=== PATIENT | male | born 1985 | race Two or more races ===

== ENCOUNTER 2021-11-27 16:02 | Emergency (ER) | payer MEDICAID ==
[~2021-11-27] VITALS: Ht 177.8 cm; Wt 98.0 kg
[2021-11-27 16:06] VITALS: BP 119/65
[2021-11-27] MEDS ORDERED: PROP20TA6 PO (17:28)
== END 2021-11-27 17:47 | disposition home or self-care (01) ==
LOC: ER 16:03
DX: K74.60 Unspecified cirrhosis of liver (principal); K76.9 Liver disease, unspecified; F11.90 Opioid use, unspecified, uncomplicated; Z76.0 Encounter for issue of repeat prescription; Z72.89 Other problems related to lifestyle; Z56.0 Unemployment, unspecified; Z90.89 Acquired absence of other organs
CPT/HCPCS: 99281

== ENCOUNTER 2024-08-17 11:47 | Emergency (ER) | payer MEDICAID ==
[~2024-08-17] VITALS: Ht 177.8 cm; Wt 78.0 kg
[~2024-08-17 11:47] MED LIST: PROP20TA6 PO
[2024-08-17 12:07] VITALS: BP 108/67
[2024-08-17] MEDS ORDERED: normal saline 1000ml 1,000 ML IV ONE (13:40)
[2024-08-17] MEDS: ipratropium/albuterol 3ml nebule NEB ONE (14:16)
[2024-08-17 14:17] VITALS: PULSE 73; PULSE 78; RESP 16; RESP 18; O2SAT 98
[2024-08-17 14:30] LABS: BASOPHILS % (AUTO) 0.3 % (0-1); EOSINOPHILS # (AUTO) 0.2 X10'3 (0-0.9); HEMATOCRIT 41.6 % (42.0-52.0); HEMOGLOBIN 14.3 g/dl (14.0-17.9); LYMPHOCYTES # (AUTO) 0.4 X10'3 (1.1-4.8); LYMPHOCYTES % (AUTO) 4.8 % (21-51); MEAN CORPUSCULAR HEMOGLOBIN 31.4 PG (27.0-31.0); MEAN CORPUSCULAR HGB CONC 34.4 g/dL (33.0-36.5); MEAN CORPUSCULAR VOLUME 91.5 FL (78-98); MEAN PLATELET VOLUME 9.4 FL (7.4-10.4); MONOCYTES # (AUTO) 0.7 X10'3 (0-0.9); NEUTROPHILS # (AUTO) 6.4 X10'3 (1.8-7.7); NEUTROPHILS % (AUTO) 83.9 % (42-75); PLATELET COUNT 69 X10'3 (140-440); RED BLOOD COUNT 4.54 X10'6 (4.70-6.10); WHITE BLOOD COUNT 7.7 X10'3 (4.5-11.0)
[2024-08-17 14:34] LABS: GLUCOSE 88 MG/DL (70-104); POTASSIUM 4.9 MMOL/L (3.5-5.1); SODIUM 135 MMOL/L (135-145)
[2024-08-17 14:35] LABS: ALBUMIN 3.6 G/DL (3.4-5.0); ANION GAP 3 (8-16); BLOOD UREA NITROGEN 14 MG/DL (7-18); BUN/CREATININE RATIO 13.5 (10.0-20.0); CALCIUM 8.8 MG/DL (8.5-10.1); CHLORIDE 99 MMOL/L (99-107); CREATININE 1.04 MG/DL (0.60-1.10); TOTAL CARBON DIOXIDE 32.9 MMOL/L (24-32); eCRCL 100 ML/MIN; eGFR 80 ML/MIN
[2024-08-17] MEDS ORDERED: ALBU8HFA PO (15:07)
[2024-08-17] MEDS: dexamethasone 4mg tablet PO ONE (15:08)
[2024-08-17 15:34] LABS: PLATELET ESTIMATE DECREASED; TOTAL CELLS COUNTED 100
[2024-08-17 15:48] VITALS: TEMP 98.7
== END 2024-08-17 15:52 | disposition home or self-care (01) ==
LOC: ER 11:47
DX: J06.9 Acute upper respiratory infection, unspecified (principal); Z20.822 Contact with and (suspected) exposure to COVID-19
CPT/HCPCS: 36415; 71045; 80048; 85007; 85025; 87502; 87503; 87811; 94640; 99284; J7030; 94760

== ENCOUNTER 2024-12-19 16:36 | Emergency (ER) | payer MEDICAID ==
[~2024-12-19] VITALS: Ht 177.8 cm; Wt 86.4 kg
[2024-12-19 16:38] VITALS: TEMP 98.2
[2024-12-19] MEDS ORDERED: iohexol 300mg/ml 100ml inj. ONE (16:49)
[2024-12-19 17:17] LABS: INR 1.1 INR; PROTHROMBIN TIME 11.6 SECONDS (9.0-12.0)
[2024-12-19 17:19] LABS: ALANINE AMINOTRANSFERASE 34 U/L (12-78); ALBUMIN 3.4 G/DL (3.4-5.0); ALBUMIN/GLOBULIN RATIO 1.1 (1.1-1.5); ALKALINE PHOSPHATASE 84 IU/L (46-116); ANION GAP 7 (8-16); ASPARTATE AMINO TRANSFERASE 24 U/L (10-37); BILIRUBIN,TOTAL 0.3 MG/DL (0.1-1.0); BLOOD UREA NITROGEN 14 MG/DL (7-18); BUN/CREATININE RATIO 17.3 (10.0-20.0); CALCIUM 8.2 MG/DL (8.5-10.1); CHLORIDE 106 MMOL/L (99-107); CREATININE 0.81 MG/DL (0.60-1.10); GLUCOSE 122 MG/DL (70-104); POTASSIUM 3.6 MMOL/L (3.5-5.1); SODIUM 140 MMOL/L (135-145); TOTAL CARBON DIOXIDE 27.4 MMOL/L (24-32); TOTAL PROTEIN 6.4 G/DL (6.4-8.2); eCRCL 128 ML/MIN; eGFR > 90 ML/MIN
[2024-12-19 17:30] LABS: BASOPHILS % (AUTO) 0.5 % (0-1); EOSINOPHILS # (AUTO) 0.1 X10'3 (0-0.9); EOSINOPHILS % (AUTO) 3.9 % (0-6); HEMATOCRIT 32.5 % (42.0-52.0); HEMOGLOBIN 11.3 g/dl (14.0-17.9); LYMPHOCYTES # (AUTO) 0.5 X10'3 (1.1-4.8); LYMPHOCYTES % (AUTO) 17.7 % (21-51); MEAN CORPUSCULAR HEMOGLOBIN 30.3 PG (27.0-31.0); MEAN CORPUSCULAR HGB CONC 34.8 g/dL (33.0-36.5); MEAN CORPUSCULAR VOLUME 87.1 FL (78-98); MEAN PLATELET VOLUME 8.7 FL (7.4-10.4); MONOCYTES # (AUTO) 0.3 X10'3 (0-0.9); MONOCYTES % (AUTO) 8.9 % (2-12); PLATELET COUNT 55 X10'3 (140-440); RED BLOOD COUNT 3.72 X10'6 (4.70-6.10); RED CELL DISTRIBUTION WIDTH 15.2 % (11.5-14.5); WHITE BLOOD COUNT 2.9 X10'3 (4.5-11.0)
[2024-12-19 18:18] VITALS: BP 118/66; PULSE 70; RESP 15; O2SAT 97
[2024-12-19 19:01] LABS: TOTAL CELLS COUNTED 100
== END 2024-12-19 18:21 | disposition home or self-care (01) ==
LOC: ER 16:37
DX: S20.211A Contusion of right front wall of thorax, initial encounter (principal); S30.1XXA Contusion of abdominal wall, initial encounter; Z90.89 Acquired absence of other organs; V89.2XXA Person injured in unspecified motor-vehicle accident, traffic, initial encounter; Y93.89 Activity, other specified; Y92.410 Unspecified street and highway as the place of occurrence of the external cause; Y99.8 Other external cause status
CPT/HCPCS: 36415; 71260; 74177; 80053; 85007; 85025; 85610; 99285; Q9967

== ENCOUNTER 2025-02-21 18:53 | Emergency (ER) | payer MEDICAID ==
[~2025-02-21] VITALS: Ht 177.8 cm; Wt 86.1 kg
[2025-02-21 19:07] VITALS: BP 121/72; PULSE 92; RESP 15; O2SAT 100
--- NOTE | 2025-02-21 19:34 | Physician Documentation ---
History of Present Illness ~ Chief Complaint: Abscess Stated Complaint: INFECTION IN NOSE Time Seen by MD: 19:28 HPI Patient is seen today with complaints of pain and tenderness of his nose and feels he has an abscess in his nose. Patient does admit to fentanyl use regularly dizzy acid last use being 5 hours ago. Patient denies any fevers or chills or chest pain or shortness of breath or abdominal pain or nausea, vomiting, diarrhea. Patient has no other concern or complaint at this time. Patient denies any sinus pressure or tenderness or discharge and denies any cough or recent illness. Tetanus Within 5 Years: No Medication Reconciliation Allergies: Coded Allergies: No Known Allergies (Unverified , 02/21/25) Scheduled Propranolol Hcl (Propranolol Hcl), 1 TAB PO Q12H Past Medical History Past Medical History: Cirrohsis, Liver Disease Past Surgical History: tonsillectomy Alcohol Use: Occasionally Drug Use: heroin Lives In: Home Occupation: unemployed Review of Systems Constitutional: Denies: chills, fever, weakness Eyes: Denies: pain, blurred vision ENT: Denies: ear pain, nose pain, throat pain, mouth pain Respiratory: Denies: cough, shortness of breath Cardiovascular: Denies: chest pain, palpitations Gastrointestinal: Denies: abdominal pain, nausea, vomiting Genitourinary: Denies: burning, dysuria Male Genitalia: Denies: penile discharge, testicular pain Neurological: Denies: headache, dizziness Musculoskeletal: Denies: pain, swelling Integumentary: Denies: rash, lesions Allergic/Immunologic: Denies: hives, itching Hematologic/Lymphatic: Denies: no symptoms reported Psychiatric: Denies: depression, anxiety Physical Exam Vital Signs: Temperature: 97.6, Source: Temporal, Heart Rate: 92, Respiratory Rate: 15, BP: 121/72, Pulse Oximetry: 100, Weight: 86.100 Physical Exam General: Awake and Alert, no acute distress. HEENT: Patient on exam has significant tenderness to palpation of his left Gore anteriorly. I do not appreciate any purulent drainage but his anterior nose is little swollen. Conjunctiva pink, Sclera clear, Mucus Membranes moist. Neck: Supple without masses and tenderness. Resp: Unlabored. Lungs clear to auscultation bilaterally. Heart: Regular Rate and rhythm, normal S1 and S2 without murmur, rub or gallop. Extremities: No cyanosis,clubbing or edema. Skin: Warm and Dry. Progress Results/Orders Results/Orders Vital Signs 02/21/25 19:07 Temp 97.6 Pulse 92 Resp 15 B/P (MAP) 121/72 Pulse Ox 100 Medical Decision Making Findings Patient is seen today with complaints of pain and tenderness of his nose and feels he has an abscess in his nose. Patient does admit to fentanyl use regularly dizzy acid last use being 5 hours ago. Patient denies any fevers or chills or chest pain or shortness of breath or abdominal pain or nausea, vomiting, diarrhea. Patient has no other concern or complaint at this time. Patient denies any sinus pressure or tenderness or discharge and denies any cough or recent illness. Patient was given dose of Bactrim DS one tab by mouth in the ED tonight. Prescription of Bactrim DS sent to patient's pharmacy to be taken by mouth twice a day for 10 days. Prescription and doses of ibuprofen also given to patient. Patient will follow up with primary care in 2-5 days if no better as needed sooner. Return to ED with any worsening, concerning or changing symptoms. Departure Disposition: 01 HOME / SELF CARE / HOMELESS Impression: Primary Impression: Abscess Condition: Improved Discharge Instructions: Abscess, Care After Additional Instructions: Patient was given dose of Bactrim DS one tab by mouth in the ED tonight. Prescription of Bactrim DS sent to patient's pharmacy to be taken by mouth twice a day for 10 days. Prescription and doses of ibuprofen also given to patient. Patient will follow up with primary care in 2-5 days if no better as needed sooner. Return to ED with any worsening, concerning or changing symptoms. Referrals: NO PRIMARY CARE PROVIDER (PCP) Prescriptions Sulfamethoxazole/Trimethoprim (Bactrim Ds Tablet) 800 Mg-160 Mg Tablet 1 TAB PO Q12H for 10 Days, #20 TAB Prov: MAYTE MCKINNON PAC 02/21/25 Ibuprofen (Ibuprofen) 800 Mg Tablet 1 TAB PO Q8H for pain for 10 Days, #30 TAB 0 Refills Prov: MAYTE MCKINNON PAC 02/21/25 Additional Comment Medical Screen Exam History: This is a 39-year-old male who presents with a abscess in his nose, patient reports that he was successfully treated for this previously with Bactrim Exam: VITALS: Reviewed and as above. GENERAL: Alert, nontoxic appearing, no apparent distress. RESPIRATORY: No increased work of breathing, no respiratory distress, speaking in full clear sentences MSE performed in triage and patient returned to ED lobby by nursing staff The note accurately reflects work and decisions made by me.GAUTAM Neumann 02/21/25 19:34 Signature Scribe Signature: no scribe Attestation: No scribe NAYA PEÑA [facility] Feb 21, 2025 19:34 MAYTE MCKINNON [facility] Feb 21, 2025 20:04
[2025-02-21] MEDS ORDERED: IBUP-1986 PO (20:09)
[2025-02-21] MEDS ORDERED: SULF1TAB49 PO (20:09)
[2025-02-21] MEDS: sulfamethoxazole/trimethoprim DS (800/160mg) tablet PO STA (20:18)
[2025-02-21] MEDS: ibuprofen tablet 400 MG TABLET PO STA (20:18)
[2025-02-21 20:23] VITALS: TEMP 97.6
== END 2025-02-21 20:24 | disposition home or self-care (01) ==
LOC: ER 18:54
DX: J34.0 Abscess, furuncle and carbuncle of nose (principal); R42 Dizziness and giddiness; F11.90 Opioid use, unspecified, uncomplicated; Z79.899 Other long term (current) drug therapy; Z56.0 Unemployment, unspecified; Z72.89 Other problems related to lifestyle
CPT/HCPCS: 99283

== ENCOUNTER 2025-04-25 13:43 | Emergency (ER) | payer MEDICAID ==
[~2025-04-25] VITALS: Ht 177.8 cm; Wt 99.0 kg
[~2025-04-25 13:43] MED LIST changes: +IBUP-1986 PO
[2025-04-25 14:43] LABS: LEUKOCYTE ESTERASE ,URINE SMALL (Neg); NITRITES, URINE NEGATIVE (Neg); OCCULT BLOOD,URINE NEGATIVE (Neg)
[2025-04-25 14:45] LABS: UA COLLECTION TYPE CLN CATCH MIDSTREAM
[2025-04-25 14:47] LABS: MEAN PLATELET VOLUME 8.7 FL (7.4-10.4); RED CELL DISTRIBUTION WIDTH 15.7 % (11.5-14.5)
[2025-04-25 14:52] LABS: SQUAMOUS EPITHELIAL CELL,UR FEW /LPF (FEW)
[2025-04-25 14:53] LABS: WBC CLUMPS,URINE FEW /HPF (NEGATIVE)
[2025-04-25 15:08] LABS: TOTAL CARBON DIOXIDE 27.6 MMOL/L (24-32)
[2025-04-25 15:11] LABS: CREATININE 0.79 MG/DL (0.60-1.10); eCRCL 131 ML/MIN; eGFR > 90 ML/MIN
[2025-04-25 15:26] LABS: EOSINOPHILS % (MANUAL) 7.0 % (0-6); LYMPHOCYTES % (MANUAL) 21.0 % (21-51); MONOCYTES % (MANUAL) 12.0 % (2-12); NEUTROPHILS % (MANUAL) 60.0 % (42-75); PLATELET ESTIMATE DECREASED
--- NOTE | 2025-04-25 15:34 | Physician Documentation ---
History of Present Illness ~ Chief Complaint: Abdominal Pain Stated Complaint: LIVER COMPLICATIONS Time Seen by MD: 14:50 Source: patient Mode of Arrival: Ambulatory Exam Limitations: no limitations HPI Chief Complaint: Abdominal pain Caveat: None Independent Historians: None History of Present Illness: Patient is a 39-year-old man with a history of hepatitis-C and cirrhosis who complains of right upper quadrant abdominal pain that began earlier this morning. Pain came on gradually. Pain is described as sharp and tightness. Patient states that he was treated for his hepatitis-C. Patient denies any alcohol use. Patient's pain is severe. No alleviating or exacerbating factors. Patient had associated nausea and dry heaves. No diarrhea. Patient denies any fever. Patient denies any other associated symptoms. Review of systems: All systems were reviewed and are negative except for what is indicated in the history of present illness. Past Medical History: Hepatitis-C, esophageal varices, laryngeal tumor, cirrhosis Past Surgical History: None Social History: Tobacco use, denies alcohol use or drug use Medications: Reviewed as documented Nursing Notes Allergies: Reviewed as documented in Nursing Notes Medication Reconciliation Allergies: Coded Allergies: No Known Allergies (Unverified , 04/25/25) Scheduled Ibuprofen (Ibuprofen), 1 TAB PO Q8H Propranolol Hcl (Propranolol Hcl), 1 TAB PO Q12H Past Medical History Past Medical History: Cirrohsis, Liver Disease Past Surgical History: tonsillectomy Alcohol Use: Occasionally Drug Use: heroin Lives In: Home Occupation: unemployed Review of Systems All Other Systems at this time: Reviewed and Negative ROS Patient denies any other acute symptoms other than above. All other systems are negative Physical Exam Vital Signs: RN Vital Signs have been reviewed: Yes, Temperature: 97.2, Source: Temporal, Heart Rate: 70, Respiratory Rate: 17, BP: 119/66, Pulse Oximetry: 98, Weight: 99.050 Oxygen Flow Rate: 0 Pulse Oximetry Reflects: adequate oxygenation Physical Exam General Appearance: Mild distress HEENT: Normal OP, moist oral mucosa, PERRL, EOMI Neck: supple, normal ROM, trachea midline Pulmonary: No respiratory distress, CTA, BS equal Cardiac: RRR, no murmur, rub or gallop, GI: nondistended, soft, right upper quadrant tenderness, normal bowel sounds, no guarding, no rebound Extremities: normal ROM, no swelling, non-tender Skin: intact, dry, warm, no rashes, covered in tattoos Neuro: AAOx3, speech is clear, no focal motor weakness Psych: normal affect, good eye contact, no apparent hallucination, normal speech Progress Results/Orders Results/Orders Orders - CARTER LONGO MD Cult Urine + [address] (04/25/25 14:53) Ultrasound Of Abdomen (04/25/25 15:25) Ct Abdomen Pelvis (04/25/25 15:52) Completed Orders - CARTER LONGO MD Cbc/Diff (04/25/25 13:56) Lipase (04/25/25 13:56) CMP (04/25/25 13:56) Ua W/Microscopic, Cult If Ind (04/25/25 13:57) Man Diff (04/25/25 14:35) Ultrasound Of Abdomen (04/25/25 15:25) Ct Abdomen Pelvis (04/25/25 15:52) Tramadol Tablet (Ultram Tablet) (04/25/25 17:05) Medications Received in ER Medications (Trade) Dose Ordered Sig/Justyn Route PRN Reason Start Time Stop Time Status Last Admin Dose Admin (Ultram tablet) 100 mg ONCE ONCE PO 04/25/25 17:05 04/25/25 17:06 DC 04/25/25 17:25 100 MG Vital Signs 04/25/25 04/25/25 04/25/25 04/25/25 13:52 15:16 15:18 16:27 Temp 97.2 97.2 97.2 Pulse 74 70 72 Resp 19 17 17 16 B/P (MAP) 122/72 119/66 (83) 104/57 (73) Pulse Ox 98 98 98 O2 Flow Rate 0 0 04/25/25 04/25/25 17:25 17:27 Temp 97.2 Pulse 66 Resp 15 15 B/P (MAP) 90/52 (65) Pulse Ox 97 O2 Flow Rate 0 Laboratory Tests Test 04/25/25 13:57 04/25/25 14:35 Urine Specimen Description Cln catch midstream Urine Color Yellow Urine Clarity Clear Urine pH 6.5 Urine Specific [place] 1.015 Urine Protein Negative Urine Glucose (UA) Negative Urine Ketones Negative Urine Occult Blood Negative Urine Nitrite Negative Urine Bilirubin Negative Urine Urobilinogen 1.0 Urine Leukocyte Esterase Small H Urine RBC 3-10 Urine WBC 0-4 Urine WBC Clumps Few Urine Squamous Epithelial Cells Few Urine Transitional Epithelial Cells Few Urine Bacteria Few Urine Culture Indicated Indicated Volume Urine Centrifuged 10 ml Urine Comment White Blood Count 2.2 L Red Blood Count 4.07 L Hemoglobin 12.2 L Hematocrit 36.2 L Mean Corpuscular Volume 88.8 Mean Corpuscular Hemoglobin 30.0 Mean Corpuscular Hemoglobin Concent 33.8 Red Cell Distribution Width 15.7 H Platelet Count 52 L Mean Platelet Volume 8.7 Neutrophils (%) (Auto) 61.1 Lymphocytes (%) (Auto) 21.2 Monocytes (%) (Auto) 12.1 H Eosinophils (%) (Auto) 4.9 Basophils (%) (Auto) 0.7 Neutrophils # (Auto) 1.3 L Lymphocytes # (Auto) 0.5 L Monocytes # (Auto) 0.3 Eosinophils # (Auto) 0.1 Basophils # (Auto) 0.0 CBC Comment Differential Total Cells Counted 100 Neutrophils % (Manual) 60.0 Lymphocytes % (Manual) 21.0 Monocytes % (Manual) 12.0 Eosinophils % (Manual) 7.0 H Platelet Estimate Decreased Red Blood Cell Morphology Normal Basophilic Stippling Sodium Level 139 Potassium Level 4.1 Chloride Level 104 Carbon Dioxide Level 27.6 Anion Gap 7 L Blood Urea Nitrogen 15 Creatinine 0.79 Estimated GFR/1.73 m2 > 90 BUN/Creatinine Ratio 19.0 Glucose Level 88 Calcium Level 8.4 L Total Bilirubin 0.3 Aspartate Amino Transf (AST/SGOT) 26 Alanine Aminotransferase (ALT/SGPT) 30 Alkaline Phosphatase 96 Total Protein 7.2 Albumin 3.7 Globulin 3.5 Albumin/Globulin Ratio 1.1 Lipase 26 Chemistry Comments Microbiology Date/Time Source Procedure Growth Status 04/25/25 14:53 Urine Clean Catch Midstream Urine Culture - Preliminary Culture received. Resulted Medical Decision Making Findings Differential diagnosis includes but is not limited to: Cirrhosis, hepatitis-C exacerbation/recurrence, ascites, cholecystitis, choledocholithiasis, biliary colic, pancreatitis, gastritis Abdominal ultrasound, indication: Abdominal pain, hepatitis-C Impression: 1. No acute abdominopelvic abnormalities. 2. Gastrosplenic varices, similar to prior. 3. Mild biliary ductal dilatation, nonspecific. 4. Splenomegaly with multiple slightly prominent retroperitoneal, mesenteric, and inguinal nodes. Cannot exclude lymphomatous involvement. Correlate with signs and symptoms. Abdominal ultrasound of the gallbladder, indication: Right upper quadrant abdominal pain 1. Normal right upper quadrant ultrasound Laboratory data independent interpretation: CBC: Leukopenia 2.2, anemia 12.2, thrombocytopenia 52 CMP: Unremarkable, LFTs are normal Lipase: 26 Urinalysis: Emergency department course/medical decision-making: Patient is a 39-year-old man with known hepatitis-C and cirrhosis presents with a right upper quadrant abdominal pain. Patient's blood work is consistent with pancytopenia. However his LFTs are normal. Patient is afebrile and hemodynamically stable. Patient's lipase is normal ruling out acute pancreatitis. Patient does not wish to have opiates because he is currently on a methadone program. Case discussed with the Infectious Disease dark regarding the lymphadenopathy. He will require outpatient workup in additional blood work for assessment of this new finding on CT. Patient's pain is treated with Ultram. Test results treatment plan and all of the above was reviewed with the patient. He needs to follow up with [facility] for his pancytopenia and lymphadenopathy. Cause for his abdominal pain is unknown. But no medical or surgical emergency has been identified. Patient is stable for discharge. Departure Time of Disposition: 17:59 Disposition: 01 HOME / SELF CARE / HOMELESS Impression: Primary Impression: Abdominal pain of unknown cause Additional Impressions: Mesenteric lymphadenopathy Pancytopenia Additional Instructions: THE CAUSE FOR YOUR ABDOMINAL PAIN IS UNCLEAR. YOU WILL NEED TO FOLLOW UP WITH YOUR DOCTOR AT [facility] TO COMPLETE ADDITIONAL BLOOD WORK. YOU HAVE SOME LYMPH NODES IN THE ABDOMEN THAT NEED FOLLOWING AND PROBABLE FURTHER OUTPATIENT WORKUPS WITH BLOOD WORK. Prescriptions Tramadol Hcl (Tramadol Hcl) 50 Mg Tablet 100 MG PO TID PRN for pain, #20 TAB Prov: CARTER LONGO MD 04/25/25 Education Educated: Patient Educated regarding: diagnosis, treatment, need for follow up Signature Scribe Signature: No scribe Attestation: No scribe CARTER LONGO MD Apr 25, 2025 15:34
--- NOTE | 2025-04-25 16:09 | RADIOLOGY REPORT ---
Ultrasound abdomen right upper quadrant INDICATION: Abdominal Pain R/O Gallbladder Technique: 2-D real-time ultrasound was performed with axial and sagittal images submitted for evalu ation. FINDINGS: Liver is normal in size measuring 13.7 cm without mass. No gallstones or gallbladder wall thickening. Common duct normal in size 3.3 mm. Right kidney 10.4 cm in length without mass stone or hydronephrosis IMPRESSION: 1. Normal right upper quadrant ultrasound
--- NOTE | 2025-04-25 16:50 | RADIOLOGY REPORT ---
Exam: CT CT ABDOMEN PELVIS History: Abdominal Pain Comparison Study: None TECHNIQUE: A digital hse coordinator image was obtained. During the uneventful, intravenous administration of c ontrast material, multislice data acquisition was obtained through the abdomen and pelvis. The data s et was subsequently reconstructed into axial images. Images reviewed on a wrist examination is an exa mination of axial and multiplanar reformations using a variety of window levels and settings. RADIATION DOSE: DLP 2153.94 mGy.cm; CTDI vol 32.44 mGy. Findings: Lungs: The lung bases are clear. Heart: No cardiomegaly or pericardial effusion. Liver: Mild biliary ductal dilatation. Gallbladder: Unremarkable. Spleen: Splenomegaly. Pancreas: Unremarkable Adrenals: Unremarkable Kidneys: Unremarkable GI tract: Unremarkable : Unremarkable. Vasculature: Gastrosplenic varices. Lymphadenopathy: Multiple slightly prominent retroperitoneal, mesenteric, and inguinal nodes Peritoneum: No ascites Musculoskeletal: Unremarkable Soft tissues: Unremarkable Impression: 1. No acute abdominopelvic abnormalities. 2. Gastrosplenic varices, similar to prior. 3. Mild biliary ductal dilatation, nonspecific. 4. Splenomegaly with multiple slightly prominent retroperitoneal, mesenteric, and inguinal nodes. Ca nnot exclude lymphomatous involvement. Correlate with signs and symptoms.
[2025-04-25] MEDS ORDERED: TRAM50TA2 PO (18:01)
[2025-04-25 18:02] VITALS: BP 113/73; PULSE 75; RESP 17; O2SAT 98
[2025-04-25 18:12] VITALS: TEMP 97.2
== END 2025-04-25 18:15 | disposition home or self-care (01) ==
LOC: ER 13:43
DX: R59.1 Generalized enlarged lymph nodes (principal); D61.818 Other pancytopenia; F11.90 Opioid use, unspecified, uncomplicated; Z90.89 Acquired absence of other organs; Z56.0 Unemployment, unspecified; Z72.89 Other problems related to lifestyle; Z79.899 Other long term (current) drug therapy
CPT/HCPCS: 36415; 74176; 76700; 80053; 81001; 83690; 85007; 85025; 87088; 99285

== ENCOUNTER 2025-08-18 10:20 | Emergency (ER) | payer MEDICAID ==
[~2025-08-18] VITALS: Ht 177.8 cm; Wt 87.5 kg
[2025-08-18 10:33] VITALS: TEMP 97.9
--- NOTE | 2025-08-18 12:17 | Physician Documentation ---
HPI ~ General Chief Complaint: Tooth Problem Stated Complaint: TOOTH PAIN Time Seen by MD: 12:00 Source: patient Mode of Arrival: POV Exam Limitations: no limitations History of Present Illness HPI Comment Patient presented secondary to tooth pain onset yesterday. Location in the right upper quadrant. He states that a tooth broke yesterday. He has been taking 800 mg of ibuprofen every hour" without effect. Denies fevers or chills. States he has an upcoming dental appointment September. Medication Reconciliation Allergies: Coded Allergies: No Known Allergies (Unverified , 04/25/25) Scheduled Ibuprofen (Ibuprofen), 1 TAB PO Q8H Penicillin V Potassium* (Penicillin VK*), 1 TAB PO QID Propranolol Hcl (Propranolol Hcl), 1 TAB PO Q12H Past Medical History Past Medical History: Cirrohsis, Liver Disease Past Surgical History: tonsillectomy Smoking Status: Current every day smoker Alcohol Use: Occasionally Drug Use: heroin Lives In: Home Occupation: unemployed Review of Systems ROS Review of systems negative except specifically documented in HPI. Physical Exam Vital Signs: Temperature: 97.9, Source: Oral, Heart Rate: 66, Respiratory Rate: 16, BP: 117/63, Pulse Oximetry: 99, Weight: 87.500 Oxygen Flow Rate: 0 Pulse Oximetry Reflects: adequate oxygenation Physical Exam Positive dental caries poor dentition Fractured tooth multiple teeth Missing teeth: multiple missing Gingiva tender, erythematous negative palpable dental abscess negative maxillary / mandibular tenderness No occlusion, no mal-alignment, no TMJ tenderness bilaterally negative facial edema / erythema / tenderness Neuro: Awake, alert, oriented. No apparent distress CV: Regular rate and rhythm. No murmur Lungs: Clear to auscultation bilaterally. Progress Results/Orders Results/Orders Completed Orders - BOB NICOLE NP Hydrocodone/Apap 10/325 ([place] 10/325mg (08/18/25 12:25) Penicillin V Potassium Tablet (Penicilli (08/18/25 12:40) Medications Received in ER Medications (Trade) Dose Ordered Sig/Justyn Route PRN Reason Start Time Stop Time Status Last Admin Dose Admin ([place] 10/325mg tab) 1 tab ONCE ONCE PO 08/18/25 12:25 08/18/25 12:26 DC 08/18/25 12:31 1 TAB (penicillin V potassium tablet) 500 mg ONCE ONCE PO 08/18/25 12:40 12/25 12:43 DC 08/18/25 13:05 500 MG Vital Signs 08/18/25 08/18/25 08/18/25 08/18/25 10:33 12:31 13:07 13:07 Temp 97.9 Pulse 66 62 Resp 16 16 18 16 B/P (MAP) 117/63 108/66 (80) Pulse Ox 99 98 O2 Flow Rate 0 Medical Decision Making Additional information obtaine: N/A Findings Patient presents with complaints of dental pain. Not immunosuppressed. Afebrile. Well-appearing. Patent airway. Low clinical suspicion for deep space infection and there is no concern for airway compromise. No evidence of tooth fracture, avulsion, bleeding socket. No evidence of Husam's angina, periapical abscess. Patient instructed to treat pain with ibuprofen/acetaminophen until they see a dentist. Patient was treated for dental abscess with abx. Instructed to use warm salt water rinses. Discussed return precautions. Differential Dx:Considerations: Include: Facial Cellulitis, Periapical abscess, Peridontal abscess, Tooth avulsion, Tooth eruption, Tooth Fracture Departure Time of Disposition: 12:16 Disposition: HOME / SELF CARE / HOMELESS Impression: Primary Impression: Dental abscess Condition: Stable Discharge Instructions: Dental Caries, Adult Additional Instructions: Take your antibiotics as prescribed. Use ibuprofen as directed. Do not take over the recommended amount of ibuprofen. May take up to 800 mg 3 times a day with food. Otherwise, may also take Tylenol. Again, take as directed. Referrals: NO PRIMARY CARE PROVIDER (PCP) Prescriptions Penicillin V Potassium* (Penicillin VK*) 500 Mg Tablet 1 TAB PO QID for 10 Days, #40 TAB Prov: BOB NICOLE NP 08/18/25 Education Educated: Patient Educated regarding: diagnosis, treatment, need for follow up Signature Scribe Signature: No scribe Attestation: The note accurately reflects work and decisions made by me.Bob Nicole - DAVID 08/18/25 13:39 This note was created with the assistance of voice recognition software whereby errors in grammar, syntax, and/or spelling may have occurred despite active proofreading efforts by the author. Please do not hesitate to contact the provider for clarification or for questions regarding the content of this document. BOB NICOLE NP Aug 18, 2025 12:17
[2025-08-18] MEDS ORDERED: PENI500T2 PO (12:23)
[2025-08-18] MEDS: HYDROcodone/acetaminophen 10/325mg tab PO ONE (12:31)
[2025-08-18] MEDS: penicillin V potassium 500mg tablet PO ONE (13:05)
[2025-08-18 13:07] VITALS: BP 108/66; PULSE 62; RESP 18; O2SAT 98
== END 2025-08-18 13:16 | disposition home or self-care (01) ==
LOC: ER 10:20
DX: K04.7 Periapical abscess without sinus (principal); F17.200 Nicotine dependence, unspecified, uncomplicated; Z90.89 Acquired absence of other organs
CPT/HCPCS: 99283

== ENCOUNTER 2025-08-22 17:07 | Emergency (ER) | payer MEDICAID ==
[~2025-08-22] VITALS: Ht 177.8 cm; Wt 89.4 kg
[~2025-08-22 17:07] MED LIST changes: +PENI500T2 PO
[2025-08-22 17:10] VITALS: BP 114/61; PULSE 72; O2SAT 100
--- NOTE | 2025-08-22 18:27 | Physician Documentation ---
HPI ~ General Chief Complaint: Tooth Problem Stated Complaint: TOOTH PAIN Time Seen by MD: 17:49 Primary Medical Doctor: None History of Present Illness HPI Comment Patient is a very pleasant 39-year-old male that presents to the emergency department for evaluation of tooth pain times several weeks. Patient reports that he was placed on antibiotics but they are not helping. Patient reports that he is unable to get into see a dentist until September. Patient has requested a change of antibiotics. Patient denies fever chills nausea vomiting diarrhea. But does report pain in the upper right jaw. No difficulty swallowing no airway issues currently. Patient denies any other symptoms at this time. Medication Reconciliation Allergies: Coded Allergies: No Known Allergies (Unverified , 08/22/25) Scheduled Ibuprofen (Ibuprofen), 1 TAB PO Q8H Penicillin V Potassium* (Penicillin VK*), 1 TAB PO QID Propranolol Hcl (Propranolol Hcl), 1 TAB PO Q12H Past Medical History Past Medical History: Cirrohsis, Liver Disease Past Surgical History: tonsillectomy Alcohol Use: Occasionally Drug Use: heroin Lives In: Home Occupation: unemployed Physical Exam Vital Signs: Temperature: 98.1, Source: Temporal, Heart Rate: 72, Respiratory Rate: 16, BP: 114/61, Pulse Oximetry: 100, Weight: 89.400 Oxygen Flow Rate: 0 Physical Exam VITALS: Reviewed and as above. GENERAL: Alert, no apparent distress. HEENT: Normocephalic, atraumatic, PERRL, EOMI, dry mucosa, mild erythema noted to the right upper gumline, no significant edema noted to the cheek on the associated side, mild lymphadenopathy noted, no difficulty swallowing no airway concern at this time. RESPIRATORY: Lungs clear, normal breath sounds, no respiratory distress. CHEST: No accessory muscle use, no retractions CV: Regular rate, rhythm, no edema, no murmur, No: JVD GI: Soft, non-tender, bowels sounds present, no rebound, guarding, or rigidity BACK: No CVA tenderness, or swelling MUSCULOSKELETAL No deformities, no edema SKIN: Warm and dry, no rash NEURO: Oriented x4, No motor or sensory deficit PSYCH: Normal mood and affect, no agitation Progress Results/Orders Results/Orders Vital Signs 08/22/25 17:10 Temp 98.1 Pulse 72 Resp 16 B/P (MAP) 114/61 Pulse Ox 100 O2 Flow Rate 0 Medical Decision Making Additional information obtaine: other Findings Chief Complaint: Tooth pain, upper right jaw, several weeks duration History of Present Illness: 39-year-old male presents to the emergency department with persistent upper right jaw tooth pain for several weeks. Patient reports he was previously placed on antibiotics without improvement. He is unable to obtain dental care until September and requests antibiotic change. Patient denies fever, chills, nausea, vomiting, diarrhea, dysphagia, or airway compromise. Physical Examination: Patient appears comfortable and in no acute distress. Vital signs within normal limits. No facial swelling, cellulitis, or trismus noted. Airway patent. No difficulty swallowing observed. Localized tenderness to upper right jaw region. Medical Decision Making: Diagnosis: Odontogenic pain, likely pulpal or periapical in origin Complexity: Moderate Risk: Low - No signs of systemic infection or local spread Assessment and Plan: Per [employer] clinical practice guidelines, antibiotics are not indicated for isolated dental pain in the absence of systemic signs (fever, malaise) or localized abscess/swelling with purulent drainage. The patient presents with localized dental pain without fever, facial swelling, cellulitis, or other signs of systemic involvement or local spread of infection. Evidence demonstrates that antibiotics do not provide substantial additional improvement in pain intensity for pulpal or periapical conditions when definitive dental treatment is available, and may cause significant harms including antibiotic resistance and adverse effects. Pain Management: Patient counseled that NSAIDs alone or in combination with acetaminophen are first-line therapy for acute dental pain. Specifically, ibuprofen 400-600 mg combined with acetaminophen 1000 mg has been shown to provide superior pain relief compared to opioid medications with a more favorable safety profile. Patient advised to use ibuprofen 400-600 mg every 6 hours as needed, which may be combined with acetaminophen 1000 mg every 6 hours (staggered dosing), unless contraindicated. Definitive Treatment: Patient counseled that moderate to advanced dental caries causing spontaneous pain requires definitive dental treatment including root canal therapy or extraction. Urgent dental referral is essential as pharmacologic management is only a temporary bridge until definitive care can be obtained. Patient instructed to contact dental provider immediately to attempt earlier appointment given persistent symptoms. Patient advised to call back or return to ED if symptoms worsen, if swelling develops, if fever occurs, or if unable to obtain dental care within 1-2 days. Antibiotic Stewardship: Patient educated that changing antibiotics is not appropriate in this clinical scenario, as the initial antibiotic prescription was likely unnecessary. The paradigm has shifted from "just in case" antibiotic prescribing to "when absolutely needed" for dental conditions. Current evidence does not support antibiotic use for isolated dental pain without signs of infection spread. Disposition: Discharged home in stable condition with instructions for pain management and urgent dental follow-up. Differential Dx:Considerations: Include: Alveolar fracture, Alveolar osteitis, ANUG, Facial Cellulitis, Periapical abscess, Peridontal abscess, Post-extraction bleeding, Pulpitis, Tooth avulsion, Tooth eruption, Tooth Fracture, Trigeminal neuralgia, Tooth subluxation, Other Departure Disposition: 01 HOME / SELF CARE / HOMELESS Impression: Primary Impression: Toothache Additional Impression: Dental abscess Condition: Stable Discharge Instructions: Dental Caries, Adult, Dental Pain, Dental Abscess Additional Instructions: Medication Instructions Take clindamycin 300 mg by mouth every 6 hours (four times daily) for dental infection. How to Take This Medication Take each dose with a full glass of water (6-8 ounces) Remain upright (sitting or standing) for at least 30 minutes after taking each dose to prevent irritation of the esophagus (food pipe) Take the medication exactly as prescribed, even if you start feeling better Complete the full course of antibiotics unless instructed otherwise by your dentist or doctor Important Safety Information Call your primary care doctor immediately if you develop: Fever Abdominal cramping or pain Three or more loose bowel movements per day Watery or bloody diarrhea (this can occur even 2 months after finishing the antibiotic) These symptoms may indicate a serious intestinal infection called Clostridioides difficile infection, which requires immediate medical attention. When to Stop the Antibiotic Your dentist should reevaluate you within 3 days. Stop taking the antibiotic 24 hours after your symptoms resolve, even if you have pills remaining. Follow-Up Care You must see a dentist for definitive treatment. Antibiotics alone will not cure your tooth problem - you will need dental treatment such as a root canal or tooth extraction. Contact your dental office immediately to try to get an earlier appointment than September. When to Seek Emergency Care Return to the emergency department or call 911 if you develop: Facial swelling Difficulty swallowing or breathing Fever Worsening pain despite medication Inability to open your mouth Pain Management Continue using ibuprofen 400-600 mg every 6 hours as needed for pain, which may be combined with acetaminophen 1000 mg every 6 hours (alternating between the two medications every 3 hours if needed for severe pain). Additional Precautions Diarrhea is common with this antibiotic If you develop significant diarrhea, stop the medication and contact your doctor This medication treats bacterial infections only, not viral infections Do not share this medication with others Referrals: NO PRIMARY CARE PROVIDER (PCP) Prescriptions Clindamycin HCl (Clindamycin HCl) 300 Mg Capsule 1 CAP PO Q8H for 10 Days, #30 CAP Prov: ALICE NAVA 08/22/25 Education Educated: Patient Educated regarding: diagnosis, treatment, need for follow up Signature Scribe Signature: A Attestation: Scribed for Alice Nava by GAUTAM Menendez . 08/22/25 18:32 ALICE NAVA Aug 22, 2025 18:27
[2025-08-22] MEDS ORDERED: CLIN300C54 PO (18:28)
[2025-08-22 18:36] VITALS: RESP 14
[2025-08-22] MEDS: HYDROcodone/acetaminophen 5mg/325mg tablet PO ONE (18:36)
[2025-08-22 18:40] VITALS: TEMP 98.1
== END 2025-08-22 18:42 | disposition home or self-care (01) ==
LOC: ER 17:07
DX: K04.7 Periapical abscess without sinus (principal); Z79.899 Other long term (current) drug therapy; Z56.0 Unemployment, unspecified; Z72.89 Other problems related to lifestyle; Z90.89 Acquired absence of other organs
CPT/HCPCS: 99283